=== PATIENT | female | born 1945 | race Caucasian/White ===

== ENCOUNTER 2018-10-27 22:15 | Emergency (ER) | payer MEDICARE, BC ==
[~2018-10-27 22:15] MED LIST: CALCIUM GLUCONATE 1000 MG/10 ML INJ IV ONE; EPINEPHRINE INJ 1 MG/10 ML DISP.SYRIN ONE; SODIUM BICARBONATE 8.4% INJ 50 MEQ/50 ML DISP.SYRIN ONE
[2018-10-27 22:37] VITALS: BP 151/13
--- NOTE | 2018-10-27 22:51 | ER Document Report ---
ED General - General Chief Complaint: Cardiac Arrest Stated Complaint: TROUBLE BREATHING Time Seen by Provider: 10/27/18 22:44 TRAVEL OUTSIDE OF THE [place] IN LAST 30 DAYS: No - HPI Notes: Patient is a 73-year-old female that presents to the emergency department for chief complaint of cardiac arrest. EMS was called to patient's house for agonal breathing and shortness of breath. EMS states that patient had an aortic valve replacement 2 weeks ago. She has had increased shortness of breath over the last few days per family. Patient did have her insulin dosing changed recently and they thought her increased somnolence state may be related to hypoglycemia. EMS states her blood sugar was over 200. They states she was agonal breathing when they arrived on scene and was bradycardic. Patient then went into asystole arrest. Patient received 3 rounds of CPR with 3 epinephrines prior to arrival in the ED. EMS intubated with a 7.0 ET tube in the field. Past Medical History: Diabetes, hypertension Past Surgical History: Aortic valve replacement Social History: Unknown Family History: Reviewed and noncontributory for presenting illness Allergies: Reviewed, see documented allergy list. REVIEW OF SYSTEMS: Unable to obtain because of acuity of condition PHYSICAL EXAMINATION: Vital signs reviewed, nursing noted reviewed. GENERAL: Unresponsive, pale, cool dry Skin HEAD: Atraumatic, normocephalic. EYES: Pupils fixed mid position with no corneal reflex bilaterally ENT: nares patent, oropharynx has copious secretions, dry mucous membranes. NECK: Trachea midline LUNGS: Apneic, breath sounds with BVM diminished to auscultation bilaterally and equal. HEART: Pulseless ABDOMEN: Protuberant, no pulsatile mass EXTREMITIES: No long bone deformity or peripheral edema NEUROLOGICAL: Unresponsive, GCS 3 T SKIN: Cool, dry, midline surgical incision over sternum with bleeding Past Medical History - Social History Smoking Status: Unknown if Ever Smoked Family History: Reviewed & Not Pertinent Physical Exam - Vital signs Vitals: Temp Pulse Ox 96.9 F L 9 L 10/27/18 22:17 10/27/18 22:17 Course - Re-evaluation Re-evalutation: 10/27/18 22:48 Patient presented by EMS unresponsive with CPR in progress. She had a 7.0 ET tube placed in the field by EMS. CPR was continued in the emergency room. Patient received calcium, bicarb, epinephrine, and IV fluids. She continued to be in asystole throughout her entire resuscitation. ET tube had copious amounts of secretions that were blood-tinged. attempted to directly visualize ET tube placement to confirm appropriate placement, I was unable to visualize the ET tube because of the amount of secretions and bleeding in the oropharynx. Patient was appearing more cyanotic and ET tube was pulled for concern that it may have become dislodged during compressions. Patient was ventilated using bag valve mask. bedside ultrasound showed no cardiac or valvular movement. There was no large pericardial effusion or cardiac tamponade. Despite resuscitative efforts the patient was pronounced at 2224. Patient's son and [id number] were present and informed. - Vital Signs Vital signs: Temp Pulse Resp BP Pulse Ox 96.9 F L 25 H 151/13 H 27 L 10/27/18 22:17 10/27/18 22:24 10/27/18 22:24 10/27/18 22:22 Procedures - Ultrasound/Bedside Ultrasound/Bedside Time completed: 22:23 Notes: 10/27/18 22:52 Parasternal short axis and subxiphoid views obtained using cardiac probe. No cardiac wall movement or valvular movement is visualized. No large pericardial effusion or tamponade - Additional Procedures IO insertion Time performed: 22:20 Additional Procedures: IO insertion - Right pretibial. Good blood return and flushed easily. Secured in place with tape. One attempt with no complications Critical Care Note - Critical Care Note Total time excluding time spent on procedures (mins): 35 Comments: Critical care time 35 exclusive from separate billable procedures for a patient requiring complex medical decision making, and high potential for clinical deterioration. Time spent obtaining history from patient or surrogate, discussions with consultants, development of treatment plan with patient or surrogate, evaluation of patient's response to treatment, examination of patient, ordering and performing treatments and interventions, ordering and review of laboratory studies, re-evaluation of patient's condition, ordering and review of radiographic studies and review of old charts Discharge - Discharge Clinical Impression: Cardiac arrest Disposition:
== END 2018-10-27 22:24 | disposition expired ==
LOC: EDBD → ER 22:15
DX: I46.9 Cardiac arrest, cause unspecified (principal); R06.00 Dyspnea, unspecified; E11.9 Type 2 diabetes mellitus without complications; I10 Essential (primary) hypertension; Z95.4 Presence of other heart-valve replacement
CPT/HCPCS: 36680; 99291; 92950; 96374; J0610; J0171; J3490